=== PATIENT | male | born 1945 ===

== ENCOUNTER 2025-04-05 14:59 | Inpatient (IN) ==
[2025-04-05] MEDS: LACTATED RINGERS 1,000 ML IV ONE (16:15)
[2025-04-05] MEDS: DIAZEPAM 10 MG/2 ML SYRINGE IV ONE (16:26)
[2025-04-05] MEDS: DIAZEPAM 5 MG TABLET PO ONE (16:26)
[2025-04-05 16:29] LABS: Basophils # (Auto) 0.03 K/mcL (0.00-0.30); Basophils % (Auto) 0.6 % (0.0-2.0); Eosinophils # (Auto) 0.08 K/mcL (0.00-0.70); Eosinophils % (Auto) 1.6 % (0.0-7.0); Hematocrit 43.1 % (40.1-51.0); Hemoglobin 15.1 g/dL (13.7-17.5); Lymphocytes # (Auto) 1.33 K/mcL (1.50-4.80); Mean Cell Volume 102.4 fL (80.0-100.0); Mean Platelet Volume 8.6 fL (8.8-12.5); Monocytes # (Auto) 0.54 K/mcL (0.10-0.90); Monocytes % (Auto) 10.5 % (1.0-12.0); Neutrophils % (Auto) 61.1 % (38.0-78.0); Platelet Count 144 K/mcL (140-440); RBC 4.21 M/mcL (4.63-6.08); Red Cell Distribution Width 11.2 % (11.5-14.5); WBC 5.1 K/mcL (4.5-11.0)
[2025-04-05] MEDS: LORazepam 2 MG/ML VIAL IV ONE ×4 (16:34→20:55)
[2025-04-05] MEDS: FOLIC ACID 1 MG TABLET PO ONE (16:34)
[2025-04-05] MEDS: THIAMINE 100 MG in 0.9 % SODIUM CHLORIDE 50 ML IV ONE (16:36)
[2025-04-05 16:46] LABS: Alcohol, Blood 76.3 mg/dL; Alcohol,Blood 0.076 gm/dL (<0.010)
[2025-04-05 16:48] LABS: ALT/SGPT 129 U/L (<40); AST/SGOT 175 U/L (<40); Albumin 3.9 gm/dL (3.2-5.2); Albumin/Globulin Ratio 2.1 (1.0-2.3); Alkaline Phosphatase 74 U/L (39-117); Bilirubin,Total 0.9 mg/dL (0.1-1.0); Blood Urea Nitrogen 13 mg/dL (8-23); Calcium 8.7 mg/dL (8.6-10.4); Carbon Dioxide 24 mmol/L (22-30); Chloride 106 mmol/L (96-108); Globulin 1.9 gm/dL (2.2-3.7); Glomerular Filtration Rate 52; Glucose 98 mg/dL (70-105); Potassium 3.5 mmol/L (3.3-5.1); Sodium 144 mmol/L (133-145)
[2025-04-05] MEDS: DILTIAZEM 25 MG/5 ML VIAL IV ONE ×2 (16:49→17:26)
[2025-04-05] MEDS: 0.9 % SODIUM CHLORIDE 1,000 ML IV ONE (16:54)
[2025-04-05] MEDS: LORazepam 2 MG/ML VIAL ONE ×2 (17:29→20:08)
[2025-04-05] MEDS: MAGNESIUM SULFATE 2 GM/50 ML BAG IV ONE (17:30)
[2025-04-05] MEDS: DILTIAZEM 125 MG in DEXTROSE 5% IN WATER 100 ML IV SCH (18:28)
[2025-04-05] MEDS ORDERED: ONDANSETRON 4 MG/2 ML VIAL IV PRN (19:40)
[2025-04-05] MEDS ORDERED: ACETAMINOPHEN 650 MG/65 ML BAG IV PRN (19:40)
[2025-04-05] MEDS: PANTOPRAZOLE 40 MG VIAL IV SCH (20:05)
[2025-04-05] MEDS: GABAPENTIN 300 MG CAPSULE PO ONE ×2 (20:06→20:46)
[2025-04-05] MEDS: 0.9 % SODIUM CHLORIDE 1,000 ML IV SCH (20:08)
[2025-04-05] MEDS: METOPROLOL TARTRATE 25 MG TABLET PO SCH (20:11)
[2025-04-05] MEDS: 0.9 % SODIUM CHLORIDE 10 ML SYRINGE IV SCH ×2 (20:12)
[2025-04-05] MEDS: HEPARIN 5,000 UNIT/ML VIAL SQ SCH (20:13)
[2025-04-05 20:40] LABS: Thyroid Stimulating Hormone 2.55 uIU/mL (0.27-5.01)
[2025-04-05] MEDS: 0.9 % SODIUM CHLORIDE 500 ML IV ONE (22:41)
[2025-04-06 05:53] LABS: Basophils # (Auto) 0.02 K/mcL (0.00-0.30); Basophils % (Auto) 0.5 % (0.0-2.0); Eosinophils # (Auto) 0.15 K/mcL (0.00-0.70); Eosinophils % (Auto) 3.4 % (0.0-7.0); Hematocrit 38.2 % (40.1-51.0); Hemoglobin 13.5 g/dL (13.7-17.5); Lymphocytes # (Auto) 1.14 K/mcL (1.50-4.80); Lymphocytes % (Auto) 25.7 % (15.5-49.0); Mean Cell Volume 104.1 fL (80.0-100.0); Mean Corpuscular HGB Conc 35.3 g/dL (31.0-36.0); Mean Platelet Volume 9.5 fL (8.8-12.5); Monocytes # (Auto) 0.52 K/mcL (0.10-0.90); Monocytes % (Auto) 11.7 % (1.0-12.0); Neutrophils % (Auto) 58.7 % (38.0-78.0); Platelet Count 128 K/mcL (140-440); RBC 3.67 M/mcL (4.63-6.08); Red Cell Distribution Width 11.3 % (11.5-14.5); WBC 4.4 K/mcL (4.5-11.0)
[2025-04-06 06:02] LABS: ALT/SGPT 90 U/L (<40); AST/SGOT 107 U/L (<40); Albumin 3.2 gm/dL (3.2-5.2); Albumin/Globulin Ratio 2.1 (1.0-2.3); Alkaline Phosphatase 57 U/L (39-117); Bilirubin,Direct 0.4 mg/dL (<0.3); Bilirubin,Total 1.5 mg/dL (0.1-1.0); Blood Urea Nitrogen 11 mg/dL (8-23); Calcium 7.3 mg/dL (8.6-10.4); Carbon Dioxide 25 mmol/L (22-30); Chloride 112 mmol/L (96-108); Globulin 1.5 gm/dL (2.2-3.7); Glomerular Filtration Rate 72; Glucose 83 mg/dL (70-105); Lactate Dehydrogenase 278 U/L (135-225); Phosphorous 2.6 mg/dL (2.5-4.5); Potassium 4.1 mmol/L (3.3-5.1); Sodium 147 mmol/L (133-145); Triglycerides 85 mg/dL (<150)
[2025-04-06] MEDS: GABAPENTIN 300 MG CAPSULE PO SCH (08:40)
[2025-04-06] MEDS: LORazepam 2 MG/ML VIAL IV PRN (08:40)
[2025-04-06] MEDS: 0.45 % SODIUM CHLORIDE 1,000 ML IV SCH (08:41)
[2025-04-06] MEDS ORDERED: THIAMINE 100 MG in 0.9 % SODIUM CHLORIDE 50 ML IV SCH (09:00)
[2025-04-06] MEDS ORDERED: DILTIAZEM 125 MG in DEXTROSE 5% IN WATER 100 ML IV PRN (11:00)
[2025-04-06] MEDS: THIAMINE 200 MG in 0.9 % SODIUM CHLORIDE 50 ML IV SCH ×2 (13:03→18:25)
[2025-04-07 06:09] LABS: Basophils # (Auto) 0.01 K/mcL (0.00-0.30); Basophils % (Auto) 0.2 % (0.0-2.0); Eosinophils % (Auto) 4.8 % (0.0-7.0); Hemoglobin 14.3 g/dL (13.7-17.5); Lymphocytes # (Auto) 1.11 K/mcL (1.50-4.80); Lymphocytes % (Auto) 26.6 % (15.5-49.0); Mean Cell Volume 102.3 fL (80.0-100.0); Mean Corpuscular HGB Conc 35.8 g/dL (31.0-36.0); Monocytes # (Auto) 0.42 K/mcL (0.10-0.90); Monocytes % (Auto) 10.1 % (1.0-12.0); Neutrophils % (Auto) 58.1 % (38.0-78.0); Platelet Count 122 K/mcL (140-440); RBC 3.91 M/mcL (4.63-6.08); WBC 4.2 K/mcL (4.5-11.0)
[2025-04-07 08:08] LABS: ALT/SGPT 78 U/L (<40); AST/SGOT 77 U/L (<40); Albumin 3.3 gm/dL (3.2-5.2); Albumin/Globulin Ratio 2.1 (1.0-2.3); Alkaline Phosphatase 61 U/L (39-117); Bilirubin,Direct 0.6 mg/dL (<0.3); Bilirubin,Total 1.2 mg/dL (0.1-1.0); Blood Urea Nitrogen 11 mg/dL (8-23); Calcium 7.6 mg/dL (8.6-10.4); Carbon Dioxide 23 mmol/L (22-30); Chloride 102 mmol/L (96-108); Globulin 1.6 gm/dL (2.2-3.7); Glomerular Filtration Rate 64; Glucose 81 mg/dL (70-105); Lactate Dehydrogenase 181 U/L (135-225); Phosphorous 2.4 mg/dL (2.5-4.5); Potassium 3.6 mmol/L (3.3-5.1); Sodium 134 mmol/L (133-145); Triglycerides 102 mg/dL (<150); Uric Acid 4.9 mg/dL (2.5-8.0)
[2025-04-07] MEDS: GABAPENTIN 300 MG CAPSULE PO SCH (14:17)
[2025-04-08 06:19] LABS: Basophils # (Auto) 0.02 K/mcL (0.00-0.30); Basophils % (Auto) 0.4 % (0.0-2.0); Eosinophils # (Auto) 0.19 K/mcL (0.00-0.70); Eosinophils % (Auto) 3.7 % (0.0-7.0); Hematocrit 41.2 % (40.1-51.0); Hemoglobin 14.9 g/dL (13.7-17.5); Lymphocytes # (Auto) 1.18 K/mcL (1.50-4.80); Lymphocytes % (Auto) 22.7 % (15.5-49.0); Mean Cell Volume 101.7 fL (80.0-100.0); Mean Corpuscular HGB Conc 36.2 g/dL (31.0-36.0); Monocytes # (Auto) 0.69 K/mcL (0.10-0.90); Monocytes % (Auto) 13.3 % (1.0-12.0); Neutrophils % (Auto) 59.7 % (38.0-78.0); Platelet Count 126 K/mcL (140-440); RBC 4.05 M/mcL (4.63-6.08); Red Cell Distribution Width 10.9 % (11.5-14.5); WBC 5.2 K/mcL (4.5-11.0)
[2025-04-08 06:20] LABS: ALT/SGPT 79 U/L (<40); AST/SGOT 80 U/L (<40); Albumin 3.1 gm/dL (3.2-5.2); Albumin/Globulin Ratio 1.6 (1.0-2.3); Alkaline Phosphatase 76 U/L (39-117); Bilirubin,Direct 0.5 mg/dL (<0.3); Blood Urea Nitrogen 12 mg/dL (8-23); Calcium 8.2 mg/dL (8.6-10.4); Carbon Dioxide 23 mmol/L (22-30); Chloride 107 mmol/L (96-108); Globulin 1.9 gm/dL (2.2-3.7); Glomerular Filtration Rate 58; Glucose 86 mg/dL (70-105); Lactate Dehydrogenase 188 U/L (135-225); Phosphorous 2.6 mg/dL (2.5-4.5); Potassium 3.8 mmol/L (3.3-5.1); Sodium 141 mmol/L (133-145); Triglycerides 75 mg/dL (<150); Uric Acid 5.2 mg/dL (2.5-8.0)
[2025-04-08] MEDS: GABAPENTIN 100 MG CAPSULE PO SCH (08:51)
[2025-04-08] MEDS ORDERED: GABAPENTIN 300 MG CAPSULE PO SCH (09:00)
== END 2025-04-08 12:55 | disposition home health service (06) | DRG 897 ==
LOC: ED 14:59 → ICU 19:36
PROVIDERS: ADMIT Student in an Organized Health Care Education/Training Program; ATTEND Student in an Organized Health Care Education/Training Program